=== PATIENT | female | born 1990 | race African-American/Black ===

== ENCOUNTER 2017-10-14 12:49 | Emergency (ER) | payer OTHER ==
[~2017-10-14] VITALS: Ht 167.6 cm; Wt 68.0 kg
[~2017-10-14 12:49] MED LIST: AZITHROMYCIN250 MG ORAL; CIPRO500 MG PO; FLAGYL500 MG ORAL; HYDROCODON-ACE1 EA15 ORAL; OFLOXACIN5 ML RIGHT EAR; PREDNISONE20 MG ORAL
[2017-10-14] MEDS ORDERED: NKM (12:53)
[2017-10-14 12:55] VITALS: BP 131/83
[2017-10-14 13:13] LABS: APPEARANCE,URINE SLIGHTLY CLOUDY; KETONES,URINE 1+ (NEGATIVE); LEUKOCYTE ESTERASE ,URINE 3+ (NEGATIVE); NITRITE,URINE NEGATIVE (NEGATIVE); PH,URINE 6 (4.5-8.0); PROTEIN,URINE 3+ (NEGATIVE); UROBILINOGEN,URINE 1 MG/DL (0.0-1.0)
[2017-10-14 13:21] LABS: BACTERIA,URINE FEW /HPF; MUCUS,URINE MODERATE /LPF (NONE/OCC); SQUAMOUS EPITHELIAL CELL,UR FEW /LPF (NONE/OCC)
[2017-10-14] MEDS ORDERED: NITROFURANTOIN100 M2 ORAL (13:43)
[2017-10-14] MEDS ORDERED: ABREVA2 GM TOPIC (13:43)
[2017-10-14 13:48] VITALS: BP 118/66
--- NOTE | 2017-10-14 18:56 | Emergency Room Report ---
History of Present Illness General Chief Complaint: Female Urogenital Problems Source: Patient Present Illness [facility] The patient is a 27-year-old female presenting for possible UTI and also oral lesion. She states that she has been having pain with urination and increased frequency of urination for the past 2 weeks. She states that she has had a history of UTI and this feels the same. She denies any vaginal discharge or hematuria or back pain. She also noticed a lesion at the left corner of her mouth yesterday. She states that she has cold sores and this feels the same. Pain is a 3/10 burning sensation and does not radiate. She denies any other symptoms including fever or chills Allergies: Coded Allergies: No Known Allergies (Unverified , 02/21/15) Patient History Past Medical History: see triage record Pertinent Family History: none Last Menstrual Period: Current Now: No Reviewed Nursing Documentation: PMH: Agreed, PSxH: Agreed Nursing Documentation-PMH Past Medical History: No Stated History Hx Asthma: Yes Review of Systems All Other Systems: negative except mentioned in HPI Physical Exam Vital Signs Date Time Temp Pulse Resp B/P (MAP) Pulse Ox O2 Delivery O2 Flow Rate FiO2 10/14/17 12:50 97.9 75 16 131/83 99 Room Air Sp02 EP Interpretation: reviewed, normal General Appearance: no apparent distress, alert, GCS 15, non-toxic Head: normocephalic, atraumatic Eyes: bilateral eye normal inspection, bilateral eye PERRL ENT: hearing grossly normal, normal pharynx, no angioedema, normal voice, other - Corner of L mouth has circular erythematous lesion Gastrointestinal: normal bowel sounds, soft, non-distended, no guarding, no rebound, tenderness - suprapubic Rectal: deferred Genitourinary: normal inspection, no CVA tenderness Musculoskeletal: back normal, gait/station normal, normal range of motion, non- tender Neurologic: alert, oriented x3, responsive, motor strength/tone normal, sensory intact, speech normal Psychiatric: judgement/insight normal, memory normal, mood/affect normal, no suicidal/homicidal ideation Skin: normal color, no rash, warm/dry, well hydrated Medical Decision Making PA Attestation Dr. Arreola is my supervising physician. Patient management was discussed with my supervising physician Diagnostic Impression: Primary Impression: UTI (urinary tract infection) Qualified Codes: N30.00 - Acute cystitis without hematuria Additional Impression: Cold sore ER Course The patient is a 27-year-old female presenting for possible UTI and also oral lesion. Differential diagnosis considered but not limited to: UTI, BV, yeast infection, pyelonephritis, PID, PE: Vitals WNL. NAD. Skin: At the left lateral mouth there is an external erythematous circular lesion Abdomen: Normal appearance. Non distended. No ecchymosis. Normal BS. TTP over suprapubic region only. No McBurney point tenderness. No guarding. No CVA tenderness Urinalysis is consistent with urinary tract infection The patient discharged home with a prescription for Macrobid And topical antiviral for cold soreand is given ER precautions. Laboratory Tests Test 10/14/17 13:01 Urine Color Yellow Urine Appearance Slightly cloudy Urine pH 6 (4.5-8.0) Urine Specific [place] 1.020 (1.005-1.035) Urine Protein 3+ (NEGATIVE) H Urine Glucose (UA) Negative (NEGATIVE) Urine Ketones 1+ (NEGATIVE) H Urine Occult Blood 5+ (NEGATIVE) H Urine Nitrite Negative (NEGATIVE) Urine Bilirubin Negative (NEGATIVE) Urine Urobilinogen 1 MG/DL (0.0-1.0) H Urine Leukocyte Esterase 3+ (NEGATIVE) H Urine RBC 5-10 /HPF (0 - 2) H Urine WBC 10-15 /HPF (0 - 2) H Urine Squamous Epithelial Cells Few /LPF (NONE/OCC) Urine Bacteria Few /HPF (NONE) Urine Mucus Moderate /LPF (NONE/OCC) H Urine HCG, Qualitative Negative Lab Results Impression Consistent with UTI Last Vital Signs Date Time Temp Pulse Resp B/P (MAP) Pulse Ox O2 Delivery O2 Flow Rate FiO2 10/14/17 13:48 74 18 118/66 100 Room Air 10/14/17 12:55 97.9 Status: improved Disposition: HOME, SELF-CARE Condition: Improved Scripts Docosanol (ABREVA) 2 Gm Cream..g. 1 APPLIC TOPIC FIVE TIMES A DAY, #5 GM Prov: TERZIAN,MEI P.A. 10/14/17 Nitrofurantoin Monohyd/M-Cryst* (MACROBID 100 MG*) 100 Mg Capsule 100 MG ORAL EVERY 12 HOURS, #14 CAP Prov: TERZIAN,MEI P.A. 10/14/17 Patient Instructions: Cold Sore, Urinary Tract Infection Additional Instructions: I discussed my findings with the patient. All questions and concerns have been answered. Treatment and medication compliance have been addressed. I advised the patient that they need to follow up with PMD in 3-5 days. Return to ED if symptoms worsen, new symptoms arise, or if needed for any reason. Patient verbalized understanding of discharge instructions. MEI ADAMSON Oct 14, 2017 18:56
== END 2017-10-14 13:48 | disposition home or self-care (01) ==
LOC: EMR 13:11
DX: N30.00 Acute cystitis without hematuria (principal); B00.1 Herpesviral vesicular dermatitis; J45.909 Unspecified asthma, uncomplicated
CPT/HCPCS: 81003; 81025; 87086; 87181; 99283

== ENCOUNTER 2018-06-20 21:55 | Emergency (ER) | payer OTHER ==
[~2018-06-20] VITALS: Ht 162.6 cm; Wt 56.2 kg
[~2018-06-20 21:55] MED LIST changes: +ABREVA2 GM TOPIC; +NITROFURANTOIN100 M2 ORAL; +NKM
[2018-06-20 22:13] VITALS: BP 124/85
[2018-06-20] MEDS ORDERED: IBUPROFEN600 MG ORAL (22:54)
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
[2018-06-20 22:58] VITALS: BP 124/85
== END 2018-06-20 22:59 | disposition home or self-care (01) ==
LOC: EMR 22:13
DX: S01.511A Laceration without foreign body of lip, initial encounter (principal); Y04.0XXA Assault by unarmed brawl or fight, initial encounter; Y92.9 Unspecified place or not applicable; J45.909 Unspecified asthma, uncomplicated
CPT/HCPCS: 12052; 99283; Z7502

== ENCOUNTER 2018-07-05 22:57 | Emergency (ER) | payer OTHER ==
[~2018-07-05] VITALS: Ht 170.2 cm; Wt 65.8 kg
[~2018-07-05 22:57] MED LIST changes: +IBUPROFEN600 MG ORAL
[2018-07-05 23:07] VITALS: BP 124/88
--- NOTE | 2018-07-05 23:21 | Emergency Room Report ---
History of Present Illness General Chief Complaint: Wound Recheck/Suture Removal Source: Patient Present Illness HPI Is a 27-year-old female whom I saw on June 20 for lip laceration. I placed absorbable suture. She came in for wound check. She also said that she see white pus on her lip. There is also some edema. Denies any other complaint and no redness or fever. No pain. Allergies: Coded Allergies: No Known Allergies (Unverified , 02/21/15) Patient History Past Medical History: see triage record, old chart reviewed Past Surgical History: none Pertinent Family History: none Social History: Denies: smoking Now: No Immunizations: other Reviewed Nursing Documentation: PMH: Agreed; PSxH: Agreed Nursing Documentation-PMH Hx Asthma: Yes Review of Systems Eye: Denies: eye pain, blurred vision ENT: Denies: ear pain, nose congestion, throat swelling Respiratory: Denies: cough, shortness of breath Cardiovascular: Denies: chest pain, palpitations Gastrointestinal: Denies: abdominal pain, diarrhea, nausea, vomiting Musculoskeletal: Denies: back pain, joint pain Skin: Denies: rash Neurological: Denies: headache, numbness Endocrine: Denies: increased thirst, increased urine Hematologic/Lymphatic: Denies: easy bruising All Other Systems: negative except mentioned in HPI Physical Exam Vital Signs Date Time Temp Pulse Resp B/P (MAP) Pulse Ox O2 Delivery O2 Flow Rate FiO2 07/05/18 22:59 98.1 91 18 124/88 96 Room Air 98.1 vitals normal Sp02 EP Interpretation: reviewed, normal General Appearance: well appearing, no apparent distress, alert Head: normocephalic, atraumatic Eyes: bilateral eye PERRL, bilateral eye EOMI ENT: hearing grossly normal, normal pharynx, other - Left upper lip: There is induration from scarring. The pus that she was referring to our the sutures. No dehiscence. No evidence of infection. Neck: full range of motion, supple, no meningismus Respiratory: chest non-tender, lungs clear, normal breath sounds Cardiovascular #1: regular rate, rhythm, no murmur Gastrointestinal: normal bowel sounds, non tender, no mass, no organomegaly, no bruit, non-distended Musculoskeletal: back normal, gait/station normal, normal range of motion Psychiatric: mood/affect normal Skin: warm/dry Procedures Additional Procedure Procedure Narrative Procedure: Suture removal Indication: Laceration repair Description: Using a small scissor, I remove the suture without any difficulty. Medical Decision Making Diagnostic Impression: Primary Impression: Encounter for wound re-check Additional Impression: Encounter for removal of sutures ER Course Patient for wound check and suture removal. Wound healing well. Explained to the patient that swelling secondary to scarring. It will take time to see if swelling will ever go down. No evidence of infection. Last Vital Signs Date Time Temp Pulse Resp B/P (MAP) Pulse Ox O2 Delivery O2 Flow Rate FiO2 07/05/18 23:07 98.1 18 124/88 96 Room Air 98.1 07/05/18 22:59 91 Status: improved Disposition: HOME, SELF-CARE Condition: Stable Referrals: [facility] (PCP) Additional Instructions: Keep wound clean. Follow-up with your doctor in 7 days. Return of worse. PATRICIA BETANCUR M.D. Jul 05, 2018 23:21
[2018-07-05 23:23] VITALS: BP 124/88
== END 2018-07-05 23:25 | disposition home or self-care (01) ==
LOC: EMR 23:08
DX: S01.511D Laceration without foreign body of lip, subsequent encounter (principal)
CPT/HCPCS: 99282

== ENCOUNTER 2018-07-15 21:44 | Emergency (ER) | payer OTHER ==
[~2018-07-15] VITALS: Ht 167.6 cm; Wt 68.0 kg
[2018-07-15 22:03] VITALS: BP 138/93
--- NOTE | 2018-07-15 22:23 | Emergency Room Report ---
History of Present Illness General Chief Complaint: Female Urogenital Problems Source: Patient Present Illness HPI Patient is a 27-year-old female presented after increased urinary urgency as well as dysuria. Patient had denied being . She states that she had not been having any abdominal pain or vomiting. She reports having increased urgency of urination. She denies any discharge. Denied any hematuria or flank pain.She denies recent antibiotic use. Allergies: Coded Allergies: No Known Allergies (Unverified , 02/21/15) Patient History Past Medical History: see triage record Now: No Reviewed Nursing Documentation: PMH: Agreed; PSxH: Agreed Nursing Documentation-PMH Hx Asthma: Yes Review of Systems All Other Systems: negative except mentioned in HPI Physical Exam Vital Signs Date Time Temp Pulse Resp B/P (MAP) Pulse Ox O2 Delivery O2 Flow Rate FiO2 07/15/18 22:01 98.9 86 21 138/93 94 Room Air 99.0 General Appearance: well appearing, no apparent distress, alert, GCS 15 Head: normocephalic, atraumatic ENT: hearing grossly normal, normal voice Neck: full range of motion, supple Respiratory: no respiratory distress, speaking full sentences Cardiovascular #1: normal inspection, normal peripheral pulses, regular rate, rhythm Gastrointestinal: normal inspection, normal bowel sounds, non tender, soft Musculoskeletal: normal inspection, back normal, digits/nails normal, no calf tenderness Neurologic: normal inspection, alert, oriented x3, responsive, normal gait Psychiatric: normal inspection, mood/affect normal Skin: no rash Medical Decision Making Diagnostic Impression: Primary Impression: UTI (urinary tract infection) ER Course Patient presented for dysuria. Differential diagnosis included was not limited to appendicitis, urinary tract infection, pelvic inflammatory disease, urethritis, herpes among others.Urinalysis showed evidence of urinary tract infection. Patient was noted to have some symptoms a lower urinary tract infection. She'll be given prescription for oral antibiotics.The patient is advised to follow up with primary care doctor in 1-2 days. Patient is advised to return if any worsening condition or if any changes in status that are concerning. This report is dictated with [employer] ic design manager software which may occasionally lead to discrepancies related to use of this software. Labs Test 07/15/18 22:10 Urine Color Yellow Urine Appearance Slightly cloudy Urine pH 5 (4.5-8.0) Urine Specific [place] 1.025 (1.005-1.035) Urine Protein 2+ (NEGATIVE) Urine Glucose (UA) Negative (NEGATIVE) Urine Ketones 2+ (NEGATIVE) Urine Blood 4+ (NEGATIVE) Urine Nitrite Positive (NEGATIVE) Urine Bilirubin Negative (NEGATIVE) Urine Urobilinogen Normal MG/DL (0.0-1.0) Urine Leukocyte Esterase 3+ (NEGATIVE) Urine RBC 2-4 /HPF (0 - 2) Urine WBC 40-60 /HPF (0 - 2) Urine Squamous Epithelial Cells Moderate /LPF (NONE/OCC) Urine Bacteria Many /HPF (NONE) Urine HCG, Qualitative Negative (NEGATIVE) Last Vital Signs Date Time Temp Pulse Resp B/P (MAP) Pulse Ox O2 Delivery O2 Flow Rate FiO2 07/15/18 22:03 99.0 81 21 138/93 94 Room Air 99.0 Status: improved Disposition: HOME, SELF-CARE Condition: Stable Scripts Phenazopyridine Hcl* (PYRIDIUM*) 200 Mg Tablet 200 MG ORAL THREE TIMES A DAY, #14 TAB 0 Refills Prov: Benito Mckinney MD 07/15/18 Cephalexin* (KEFLEX*) 500 Mg Capsule 500 MG ORAL EVERY 6 HOURS, #28 CAP Prov: Benito Mckinney MD 07/15/18 Benito Mckinney MD Jul 15, 2018 22:23
[2018-07-15 22:49] LABS: APPEARANCE,URINE SLIGHTLY CLOUDY; BILIRUBIN, URINE NEGATIVE (NEGATIVE); GLUCOSE, URINE (UA) NEGATIVE (NEGATIVE); KETONES,URINE 2+ (NEGATIVE); LEUKOCYTE ESTERASE ,URINE 3+ (NEGATIVE); NITRITE,URINE POSITIVE (NEGATIVE); PH,URINE 5 (4.5-8.0); PROTEIN,URINE 2+ (NEGATIVE); UROBILINOGEN,URINE NORMAL MG/DL (0.0-1.0)
[2018-07-15 22:51] LABS: COLOR,URINE YELLOW
[2018-07-15] MEDS ORDERED: CEPHALEXIN500 MG ORAL (22:57)
[2018-07-15] MEDS ORDERED: PHENAZOPYRIDIN200 MG ORAL (22:57)
[2018-07-15 22:59] VITALS: BP 138/93
== END 2018-07-15 23:00 | disposition home or self-care (01) ==
LOC: EMR 22:15
DX: N39.0 Urinary tract infection, site not specified (principal); J45.909 Unspecified asthma, uncomplicated
CPT/HCPCS: 81003; 81025; 87086; 87181; 99283

== ENCOUNTER 2020-05-18 16:50 | Emergency (ER) | payer MEDICAID ==
[~2020-05-18] VITALS: Ht 170.2 cm; Wt 69.9 kg
[~2020-05-18 16:50] MED LIST changes: +CEPHALEXIN500 MG ORAL; +FIORICET1 EA ORAL; +PHENAZOPYRIDIN200 MG ORAL; +ROBAXIN-750750 MG PO
--- NOTE | 2020-05-18 17:13 | Diagnostic Imaging Report ---
Indication: Trauma, pain Technique: 3 views of the left ankle Comparison: none Findings: No acute fractures. No dislocations. The joint spaces are preserved Impression: Negative
--- NOTE | 2020-05-18 17:26 | Emergency Room Report ---
History of Present Illness General Chief Complaint: Lower Extremity Injury Source: Patient Present Illness HPI 29-year-old female with no significant past medical history here complaining of left ankle swelling and pain after injuring herself with a shopping cart. Rates the pain 7 out of 10 without radiation. Obvious swelling noted over left lateral malleolus. Reina sign is negative. Denies tingling and numbness. Denies pain radiation. Has not taken medication for symptom relief. Denies all other injuries. Denies chest pain, shortness of breath, headache and dizziness. Denies . Allergies: Coded Allergies: No Known Allergies (Unverified , 02/21/15) COVID-19 Screening Contact w/high risk pt: No Experienced COVID-19 symptoms?: No COVID-19 Testing performed PET RESORT CONCIERGE: No Patient History Past Medical History: see triage record Past Surgical History: none Pertinent Family History: none Last Menstrual Period: 05/12/2020 Now: No Reviewed Nursing Documentation: PMH: Agreed; PSxH: Agreed Nursing Documentation-PMH Past Medical History: No Stated History Hx Cardiac Problems: No Hx Hypertension: Yes Hx Asthma: Yes Hx COPD: No Hx Diabetes: No Hx Cancer: No Hx Gastrointestinal Problems: No Hx Dialysis: No Hx Neurological Problems: No Hx Cerebrovascular Accident: No Hx Seizures: No Review of Systems All Other Systems: negative except mentioned in HPI Physical Exam Vital Signs Date Time Temp Pulse Resp B/P (MAP) Pulse Ox O2 Delivery O2 Flow Rate FiO2 05/18/20 16:52 98.1 80 15 125/85 (98) 100 Room Air Sp02 EP Interpretation: reviewed, normal General Appearance: no apparent distress, alert, GCS 15, non-toxic Head: normocephalic, atraumatic Eyes: bilateral eye normal inspection, bilateral eye PERRL ENT: hearing grossly normal, normal pharynx, no angioedema, normal voice Neck: full range of motion, supple/symm/no masses Respiratory: chest non-tender, lungs clear, normal breath sounds, no rhonchi, no retraction, no wheezing, speaking full sentences Cardiovascular #1: regular rate, rhythm, no edema, no murmur Cardiovascular #2: 2+ dorsalis pedis (R), 2+ dorsalis pedis (L) Gastrointestinal: normal bowel sounds, non tender, soft, non-distended, no guarding, no rebound Rectal: deferred Genitourinary: no CVA tenderness Musculoskeletal: back normal, no calf tenderness, swelling - Left lateral malleolus Neurologic: alert, oriented Psychiatric: normal inspection Skin: no rash Lymphatic: no adenopathy Procedures Splinting Splinting : Consent: Verbal Location: Left ankle Splint: poserior short Pre-Proc Neuro Vasc Exam: normal Post-Proc Neuro Vasc Exam: normal Patient Tolerated: Well Complications: None Medical Decision Making Diagnostic Impression: Primary Impression: Ankle sprain ER Course 29-year-old female with no significant past medical history here complaining of left ankle swelling and pain after injuring herself with a shopping cart. Rates the pain 7 out of 10 without radiation. Obvious swelling noted over left lateral malleolus. Reina sign is negative. Denies tingling and numbness. Denies pain radiation. Has not taken medication for symptom relief. Denies all other injuries. Denies chest pain, shortness of breath, headache and dizziness. Denies . Ddx considered but are not limited to: ankle sprain, ankle strain, ankle fracture, ankle contusion Vital signs: are WNL, pt. is afebrile H&PE are most consistent with: ankle sprain ORDERS: ankle X ray, Robaxin, Motrin, ED INTERVENTIONS: Toradol, Robaxin, symptomatic splint was applied, crutches were provided DISCHARGE: At this time pt. is stable for d/c to home. Will provide printed patient care instructions, and any necessary prescriptions. Care plan and follow up instructions have been discussed with the patient prior to discharge. Take medication as directed, follow-up with strategic marketing specialist, keep splint on, worsening symptom return to emergency room Other X-Ray Diagnostic Results Other X-Ray Diagnostic Results : X-Ray ordered: Left ankle # of Views/Limited Vs Complete: 3 View Indication: Pain EP Interpretation: Yes PA Xray: Interpretation reviewed, by supervising MD, and agrees with findings. Interpretation: no dislocation, no fractures Impression: No acute disease Electronically Signed by: Leonila Causey PA-C Last Vital Signs Date Time Temp Pulse Resp B/P (MAP) Pulse Ox O2 Delivery O2 Flow Rate FiO2 05/18/20 16:52 98.1 80 15 125/85 (98) 100 Room Air Disposition: HOME, SELF-CARE Condition: Stable Scripts Ibuprofen (Ibu) 800 Mg Tablet 800 MG PO TID, #30 TAB Prov: Leonila Rubio 05/18/20 Methocarbamol* (ROBAXIN-750*) 750 Mg Tablet 750 MG PO TID, #21 TAB 0 Refills Prov: Leonila Rubio 05/18/20 Patient Instructions: Ankle Sprain Additional Instructions: Take medication as directed, follow-up with your primary care provider or strategic marketing specialist, if worsening symptoms return to the emergency room Leonila Rubio May 18, 2020 17:26
[2020-05-18] MEDS ORDERED: IBU800 MG PO (17:27)
[2020-05-18] MEDS ORDERED: ROBAXIN-750750 MG PO (17:27)
[2020-05-18] MEDS ORDERED: Ketorolac 30mg Inj ONE (17:35)
[2020-05-18] MEDS ORDERED: Methocarbamol 750mg tab ORAL ONE (17:45)
[2020-05-18] MEDS ORDERED: Ketorolac 30mg Inj IM ONE (17:45)
[2020-05-18 18:06] VITALS: BP 125/85
== END 2020-05-18 18:00 | disposition home or self-care (01) ==
LOC: EMR 17:31
DX: S93.402A Sprain of unspecified ligament of left ankle, initial encounter (principal); X58.XXXA Exposure to other specified factors, initial encounter; Y92.9 Unspecified place or not applicable; I10 Essential (primary) hypertension
CPT/HCPCS: 29515; 73610; 96372; J1885; Z7502; 99283

== ENCOUNTER 2021-01-01 09:43 | Emergency (ER) | payer MEDICAID ==
[~2021-01-01] VITALS: Ht 167.6 cm; Wt 73.9 kg
[~2021-01-01 09:43] MED LIST changes: +DECADRON2 MG ORAL; +GUAIFENESIN DM118 M1 ORAL; +IBU800 MG PO; +VENTOLIN HFA18 GM INH
[2021-01-01 10:01] VITALS: BP 124/88
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
--- NOTE | 2021-01-01 10:17 | Emergency Room Report ---
History of Present Illness General Chief Complaint: Abdominal Pain Source: Patient Present Illness HPI Patient is a 30-year-old female who presents to the ER requesting test. Patient states that she feels like she is . She states that her breasts are engorged, she feels tired, and has suprapubic discomfort. She denies any fever or chills. She denies any vomiting but complains of slight n ausea. She denies any chest pain or shortness of breath. She states that her last menstrual period was December 01. Patient states that she has had 2 prior pregnancies Allergies: Coded Allergies: No Known Allergies (Unverified , 02/21/15) COVID-19 Screening Contact w/high risk pt: No Experienced COVID-19 symptoms?: No COVID-19 Testing performed [employer]OR: No COVID-19 Screening: Negative COVID-19 Patient History Last Menstrual Period: December 01, 2020 Now: No : 2 Para: 2 Reviewed Nursing Documentation: PMH: Agreed; PSxH: Agreed Nursing Documentation-PMH Past Medical History: No Stated History Hx Cardiac Problems: No Hx Hypertension: No Hx Pacemaker: No Hx Asthma: No Hx COPD: No Hx Diabetes: No Hx Cancer: No Hx Gastrointestinal Problems: No Hx Dialysis: No History Of Psychiatric Problem: No Hx Neurological Problems: No Hx Cerebrovascular Accident: No Hx Seizures: No Review of Systems All Other Systems: negative except mentioned in HPI Physical Exam Vital Signs Date Time Temp Pulse Resp B/P (MAP) Pulse Ox O2 Delivery O2 Flow Rate FiO2 01/01/21 09:51 97.9 78 16 124/88 (100) 100 Room Air 01/01/21 10:01 100 Sp02 EP Interpretation: reviewed, normal General Appearance: no apparent distress, alert, GCS 15, non-toxic Head: normocephalic, atraumatic Eyes: bilateral eye normal inspection, bilateral eye PERRL ENT: hearing grossly normal, normal pharynx, no angioedema, normal voice Neck: full range of motion, supple/symm/no masses Respiratory: chest non-tender, lungs clear, normal breath sounds, speaking full sentences Cardiovascular #1: regular rate, rhythm, no edema Gastrointestinal: normal bowel sounds, non tender, soft, non-distended, no guarding, no rebound Rectal: deferred Genitourinary: no CVA tenderness Neurologic: duplicate maker 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 hCG negative. I relayed these results to the patient. She told her that she recently had Covid. I explained to her that experience fatigue after recovering from COVID-19. She states that she will follow-up with her doctor. After discussing risks and benefits of further diagnostics, treatment plans, as well as indications for and risks of admission, the patient is agreeable to being discharged home. I have explained that their evaluation and treatment in the emergency department today is an important step towards them achieving better health but that their evaluation today is not intended to replace further evaluation and treatment by a physician in their local clinic. I have explained that while the current findings suggest no immediate life threatening emergency they will require further evaluation and treatment by a physician of their choice in their area. They understand that it will be necessary for them to review the final reports of their ED visit with their clinic physician. We have reviewed indications for return to the Emergency Department. I have explained that additional time may need to pass and/or additional testing as an outpatient may be necessary before a definitive diagnosis can be made. They tell me they are willing to follow up as instructed within the timeframe I recommend. They appear to understand what we discussed. Additionally they understand that if they are unable to be seen by an outpatient physician they are welcome, and in fact should, return to the Emergency Department for a repeat evaluation. The patient is stable at time of discharge. Laboratory Tests Test 01/01/21 10:10 Urine Color Yellow Urine Appearance Clear Urine pH 6 (4.5-8.0) Urine Specific Hughes 1.015 (1.005-1.035) Urine Protein Negative (NEGATIVE) Urine Glucose (UA) Negative (NEGATIVE) Urine Ketones Negative (NEGATIVE) Urine Blood 1+ (NEGATIVE) H Urine Nitrite Negative (NEGATIVE) Urine Bilirubin Negative (NEGATIVE) Urine Urobilinogen Normal MG/DL (0.0-1.0) Urine Leukocyte Esterase 1+ (NEGATIVE) H Urine RBC 0-2 /HPF (0 - 2) Urine WBC 0-2 /HPF (0 - 2) Urine Squamous Epithelial Cells Occasional /LPF Urine Bacteria Occasional /HPF (NONE) Urine HCG, Qualitative Negative (NEGATIVE) Urine Opiates Screen Negative (NEGATIVE) Urine Barbiturates Screen Negative (NEGATIVE) Phencyclidine (PCP) Screen Negative (NEGATIVE) Urine Amphetamines Screen Negative (NEGATIVE) Urine Benzodiazepines Screen Negative (NEGATIVE) Urine Cocaine Screen Negative (NEGATIVE) Urine Marijuana (THC) Screen Negative (NEGATIVE) Last Vital Signs Date Time Temp Pulse Resp B/P (MAP) Pulse Ox O2 Delivery O2 Flow Rate FiO2 01/01/21 10:01 78 16 Room Air 100 01/01/21 10:01 97.9 124/88 100 Disposition: HOME, SELF-CARE Condition: Stable Referrals: [facility],REFERRING (PCP) Additional Instructions: The patient was provided with discharge instructions, notified to follow-up with a primary care doctor and or specialist in the next 24-48 hours, and to return to the ED if they have worsening of their symptoms. Please note that this report is being documented using [employer] technology. This can lead to erroneous entry secondary to incorrect interpretation by the di ctating instrument. Svitlana Laughlin M.D. Jan 01, 2021 10:17
[2021-01-01 10:38] LABS: APPEARANCE,URINE CLEAR; BILIRUBIN, URINE NEGATIVE (NEGATIVE); GLUCOSE, URINE (UA) NEGATIVE (NEGATIVE); KETONES,URINE NEGATIVE (NEGATIVE); LEUKOCYTE ESTERASE ,URINE 1+ (NEGATIVE); NITRITE,URINE NEGATIVE (NEGATIVE); PH,URINE 6 (4.5-8.0); PROTEIN,URINE NEGATIVE (NEGATIVE); UROBILINOGEN,URINE NORMAL MG/DL (0.0-1.0)
[2021-01-01 10:39] LABS: COLOR,URINE YELLOW
[2021-01-01 11:10] VITALS: BP 120/82
--- NOTE | 2021-01-01 11:10 | NUR ---
ED Nurse Note: Pt cleared by health care Provider for discharge. DC instructions was given and explained to pt and verbalized understanding of teachings. All medical devices such as ID band removed. Pt is AAO x4, ambulatory and left with all personal belongings.
== END 2021-01-01 11:11 | disposition home or self-care (01) ==
LOC: EMR 09:52
DX: R11.0 Nausea (principal)
CPT/HCPCS: 80307; 81003; 81025; 96374; Z7502; 99284